=== PATIENT | female | born 1985 | race African-American/Black ===

== ENCOUNTER 2018-11-04 07:40 | Emergency (ER) | payer BC ==
[~2018-11-04] VITALS: Ht 177.8 cm; Wt 104.3 kg
[2018-11-04] MEDS ORDERED: NEURONTIN 300300 M1 PO (07:46)
[2018-11-04] MEDS ORDERED: CYMBALTA20 MG PO (07:46)
[2018-11-04 08:06] LABS: ABSOLUTE BASOPHILS 0.1 thou/uL (0.0-0.2); ABSOLUTE EOSINOPHILS 0.2 thou/uL (0.0-0.7); ABSOLUTE LYMPHOCYTES 2.8 thou/uL (0.8-5.3); ABSOLUTE MONOCYTES 1.2 thou/uL (0.0-1.2); ABSOLUTE NEUTROPHILS 8.6 thou/uL (1.6-8.1); BASOPHILS 0.6 %; EOSINOPHILS 1.6 %; HEMATOCRIT 37.6 % (37.0-47.0); HEMOGLOBIN 16.2 gm/dL (12.0-15.0); MCH 38.8 pg (26.0-34.0); MCV 90.3 fL (80.0-100.0); MONOCYTES 9.3 %; MPV 8.5 fl. (7.2-11.1); NUCLEATED RBCS 0 /100WBC; PLATELET COUNT* 299 thou/uL (150-400); POLYS 66.5 %; RBC 4.17 mil/uL (4.20-5.00); RDW-CV 12.7 % (10.5-14.5); WBC 12.9 thou/uL (4.0-11.0)
[2018-11-04 08:17] LABS: CHLORIDE 97 mmol/L (98-107); POTASSIUM 4.7 mmol/L (3.5-5.1); SODIUM 131 mmol/L (136-145)
[2018-11-04 08:38] LABS: CK-MB MASS < 0.5 ng/mL (<0.5-3.6); LIPASE 121 U/L (73-393); MAGNESIUM 1.6 mg/dL (1.8-2.4); NT-PRO BRAIN NAT PEPTIDE 5 pg/mL (<300); TROPONIN-I LEVEL <0.06 ng/mL (<0.06)
[2018-11-04 08:54] LABS: ANION GAP 8 mmol/L (7-16); CO2 26 mmol/L (21-32)
[2018-11-04 08:58] LABS: BUN 16.8 mg/dL (7-18); CREATININE 0.6 mg/dL (0.6-1.3); GLUCOSE 99.6 mg/dL (70-99)
[2018-11-04 08:59] LABS: ALKALINE PHOSPHATASE 96 U/L (46-116); SGOT 58.8 U/L (15-37); SGPT 28.8 U/L (30-65); TOTAL BILIRUBIN 0.1 mg/dL (<0.1-1.0)
[2018-11-04 09:00] LABS: ALBUMIN 3.6 g/dL (3.4-5.0)
[2018-11-04 09:12] VITALS: BP 101/74
--- NOTE | 2018-11-04 12:32 | EKG ---
[place] [address] ELECTROCARDIOGRAM REPORT Name: WILBER VERDUGO Room: [facility]#: [id number] Admission: 11/04/18 Attend Phys: Discharge: 11/04/18 Date of : 83 Report #: [id number] THIS REPORT FOR: //name// [facility] ED Test Date: 2018-11-04 Test Time: 07:44:44 Pat Name: WILBER VERDUGO Department: Room: Gender: F Last [place]: : 1985 Requested By: Jordon Gilbert Order Number: [id number] MD: Dre Jeronimo Measurements Intervals [place] Rate: 89 P: 57 NE: 178 QRS: 2 QRSD: 89 T: 35 QT: 351 QTc: 428 Interpretive Statements Sinus rhythm Low voltage, precordial leads No previous ECG available for comparison Electronically Signed On 11-04-2018 12:31:55 [place] by Dre Jeronimo [email or web address] <ELECTRONICALLY SIGNED> By: Dre Jeronimo MD, [facility] 11/04/18 1231 0744 0744 Dre Jeronimo MD, FAC /EPI
== END 2018-11-04 09:13 | disposition home or self-care (01) ==
LOC: M.ERS 07:40
PROVIDERS: Family Medicine
DX: R07.89 Other chest pain (principal); Z90.710 Acquired absence of both cervix and uterus; Z88.0 Allergy status to penicillin; Z88.8 Allergy status to other drugs, medicaments and biological substances